=== PATIENT | female | born 1940 | race Caucasian/White ===

== ENCOUNTER → 2016-11-07 | Outpatient (CLI) | payer OTHER ==
[~2016-11-07] MED LIST: AUGMENTIN 500-1 EACH PO; MACROBID 100 M100 M1 PO; MAXIDE PO; MAXZIDE-25 MG1 EACH PO; MINIPRIN81 MG PO; MIRALAX255 GM PO; NASACORT IH; SINGULAIR 10 MG10 M1 PO; SYMBICORT80 MCG/4.1 INH; VERAPAMIL HCL120 MG PO; XANAX 0.25 MG0.25 MG PO; ZOCOR 10 MG TAB10 MG PO; ZOCOR20 MG PO
== END ==
LOC: CAT 09:37
DX: R47.01 Aphasia (principal)

== ENCOUNTER → 2018-09-07 | Outpatient (CLI) | payer OTHER | LOC: RAD 11:29 | DX: J98.4 Other disorders of lung (principal) ==

== ENCOUNTER 2018-10-01 20:48 | Emergency (ER) | payer OTHER ==
[~2018-10-01] VITALS: Ht 149.9 cm; Wt 46.7 kg
[2018-10-01] MEDS ORDERED: SIMVASTATIN40 MG PO (21:14)
[2018-10-01] MEDS ORDERED: BYSTOLIC10 MG PO (21:15)
[2018-10-01] MEDS ORDERED: VALIUM2 MG PO (21:16)
[2018-10-01] MEDS ORDERED: ASPIR 8181 MG PO (21:16)
[2018-10-01] MEDS ORDERED: SYMBICORT80 MCG/4.1 INH (21:17)
[2018-10-01] MEDS ORDERED: MOBIC7.5 MG PO (21:59)
[2018-10-01] MEDS ORDERED: KEFLEX500 M1 PO (21:59)
[2018-10-01 23:18] VITALS: BP 162/90
== END 2018-10-01 23:19 | disposition home or self-care (01) ==
LOC: ER 20:48
DX: M19.031 Primary osteoarthritis, right wrist (principal); J45.909 Unspecified asthma, uncomplicated; I10 Essential (primary) hypertension; Z88.1 Allergy status to other antibiotic agents; Z88.8 Allergy status to other drugs, medicaments and biological substances; Z91.040 Latex allergy status

== ENCOUNTER 2019-06-23 10:58 | Emergency (ER) | payer OTHER ==
[~2019-06-23] VITALS: Ht 152.4 cm; Wt 52.2 kg
[~2019-06-23 10:58] MED LIST changes: +ASPIR 8181 MG PO; +BYSTOLIC10 MG PO; +KEFLEX500 M1 PO; +MOBIC7.5 MG PO; +SIMVASTATIN40 MG PO; +VALIUM2 MG PO
--- NOTE | 2019-06-23 11:50 | EKG ---
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1940 Requested By: Lynne Gilbert Order Number: [id number] MD: Ector Flores Measurements Intervals [place] Rate: 64 P: 50 VT: 157 QRS: -35 QRSD: 85 T: 45 QT: 401 QTc: 414 Interpretive Statements Sinus rhythm Left axis deviation Low voltage, precordial leads Poor R wave progression Compared to ECG 08/13/2012 01:53:56 Left-axis deviation now present Electronically Signed On 06-23-2019 11:49:32 [employer] TRANSFER OPERATOR by Ector Flores [email or web address] <ELECTRONICALLY SIGNED> By: Ector Flores MD, [facility] 06/23/19 1149 [id number] 04 Ector Flores MD, [facility] /EPI
[2019-06-23 13:26] LABS: ABSOLUTE NEUTROPHILS 5.8 thou/uL (1.4-8.2); BASOPHILS 0.7 % (0.0-2.0); EOSINOPHILS 1.5 % (0.0-3.0); HEMATOCRIT 43.6 % (37.0-47.0); HEMOGLOBIN 14.7 gm/dL (12.0-15.0); LYMPHOCYTES 15.2 % (24.0-44.0); MCH 30.6 pg (26.0-34.0); MCHC 33.7 g/dL (28.0-37.0); MCV 90.8 fL (80.0-100.0); MONOCYTES 7.1 % (1.0-8.0); PLATELET COUNT 217 thou/uL (150-400); POLYS 75.5 % (36.0-66.0); RBC 4.81 mil/uL (4.20-5.00); RDW 13.6 % (10.5-14.5); WBC 7.6 thou/uL (4.0-11.0)
[2019-06-23 13:27] LABS: URINE BILIRUBIN NEGATIVE (Negative); URINE BLOOD NEGATIVE (Negative); URINE CLARITY CLEAR; URINE COLOR YELLOW; URINE GLUCOSE-RANDOM* NEGATIVE (Negative); URINE KETONES NEGATIVE (Negative); URINE LEUKOCYTES-REFLEX NEGATIVE (Negative); URINE NITRITE-REFLEX NEGATIVE (Negative); URINE PROTEIN (DIPSTICK) NEGATIVE (Negative); URINE SPECIFIC GRAVITY <= 1.005 (1.005-1.035); URINE UROBILINOGEN 0.2 E.U./dl (0.2-1.0)
[2019-06-23 13:43] LABS: ALBUMIN 4.1 g/dL (3.4-5.0); CALCIUM 10.3 mg/dL (8.5-10.1); CREATININE 1.3 mg/dL (0.6-1.0); DIRECT BILIRUBIN 0.1 mg/dL (<0.1-0.2); POTASSIUM 4.9 mmol/L (3.5-5.1); TOTAL BILIRUBIN 0.5 mg/dL (<0.1-1.0); TOTAL PROTEIN 7.8 g/dL (6.4-8.2)
[2019-06-23 15:40] VITALS: BP 196/90
== END 2019-06-23 15:40 | disposition home or self-care (01) ==
LOC: ER 10:58
PROVIDERS: Emergency Medicine
DX: R55 Syncope and collapse (principal); I10 Essential (primary) hypertension; J45.909 Unspecified asthma, uncomplicated; Z91.040 Latex allergy status; Z88.0 Allergy status to penicillin; Z88.1 Allergy status to other antibiotic agents; Z88.8 Allergy status to other drugs, medicaments and biological substances